=== PATIENT | female | born 2000 | race Two or more races ===

== ENCOUNTER 2021-08-24 08:19 | Emergency (ER) | payer MEDICAID ==
[~2021-08-24] VITALS: Ht 149.9 cm; Wt 48.0 kg
[2021-08-24] MEDS ORDERED: IBUPROFEN 400MG TABLET PO ONE (08:45)
[2021-08-24] MEDS ORDERED: PENICILLIN V POTASSIUM 250MG TABLET PO ONE (08:45)
[2021-08-24] MEDS ORDERED: ACET-2708 MT (09:28)
[2021-08-24] MEDS ORDERED: PENI250T2 MT (09:28)
[2021-08-24 10:35] VITALS: BP 109/76
== END 2021-08-24 10:37 | disposition home or self-care (01) ==
LOC: ER 08:33
DX: O26.892 Other specified pregnancy related conditions, second trimester (principal); S02.5XXA Fracture of tooth (traumatic), initial encounter for closed fracture; X58.XXXA Exposure to other specified factors, initial encounter; Y93.89 Activity, other specified; Y92.89 Other specified places as the place of occurrence of the external cause; Y99.8 Other external cause status; Z3A.28 28 weeks gestation of pregnancy
CPT/HCPCS: 99283

== ENCOUNTER 2021-08-24 17:38 | Emergency (ER) | payer MEDICAID ==
[~2021-08-24] VITALS: Ht 149.9 cm; Wt 48.0 kg
[~2021-08-24 17:38] MED LIST: ACET-2708 MT; PENI250T2 MT
[2021-08-24] MEDS ORDERED: ACETAMINOPHEN 325MG TABLET PO STA (17:53)
[2021-08-24] MEDS ORDERED: BUPIVACAINE HCL/PF 0.25% (2.5MG/ML) 10ML INFIL ONE (18:15)
[2021-08-24 20:25] VITALS: BP 118/77
== END 2021-08-24 21:01 | disposition home or self-care (01) ==
LOC: ER 17:38
DX: S02.5XXA Fracture of tooth (traumatic), initial encounter for closed fracture (principal); X58.XXXA Exposure to other specified factors, initial encounter; Y93.89 Activity, other specified; Y92.89 Other specified places as the place of occurrence of the external cause; Y99.8 Other external cause status; Z88.0 Allergy status to penicillin
CPT/HCPCS: 99281; J3490

== ENCOUNTER 2021-11-11 16:44 | Inpatient (IN) | payer MEDICAID ==
[~2021-11-11] VITALS: Ht 149.9 cm; Wt 51.3 kg
[2021-11-11] MEDS ORDERED: BUTORPHANOL TARTRATE 2 MG/ML VIAL IV PRN (18:15)
[2021-11-11] MEDS ORDERED: CARBOPROST TROMETHAMINE 250 MCG/ML AMPUL IM PRN (18:15)
[2021-11-11] MEDS ORDERED: LIDOCAINE HCL 1% 20ML VIAL (Pyxis) INJ INFIL SCH (18:15)
[2021-11-11] MEDS ORDERED: MISOPROSTOL 100MCG TABLET VG SCH (18:15)
[2021-11-11] MEDS ORDERED: NALOXONE HCL 0.4 MG/ML 1ML VIAL IM PRN (18:15)
[2021-11-11] MEDS ORDERED: METHYLERGONOVINE MALEATE 0.2 MG/ML IM PRN ×2 (18:15→21:15)
[2021-11-11] MEDS ORDERED: LACTATED RINGERS 1,000 ML IV SCH ×2 (18:15)
[2021-11-11] MEDS ORDERED: RHO(D) IMMUNE GLOBULIN 300 MCG/SYR IM NR (18:15)
[2021-11-11] MEDS ORDERED: BLOOD SUGAR DIAGNOSTIC STRIP TEST ONE (18:15)
[2021-11-11] MEDS ORDERED: DEXT 5%/LR + PITOCIN 20UNITS/L 1,000 ML IV SCH ×2 (18:30→21:00)
[2021-11-11 18:46] LABS: BASOPHILS % 0.6 % (0.0-2.0); EOSINOPHILS % 0.5 % (0.0-5.0); HEMATOCRIT. 31.3 % (36.0-48.0); HEMOGLOBIN. 10.2 g/dL (12.0-16.0); LYMPHOCYTES % 20.7 % (20.0-50.0); MEAN CORPUSCULAR HEMOGLOBIN 26.2 pg (28.0-32.0); MEAN CORPUSCULAR VOLUME 80.7 fL (81.0-99.0); MEAN PLATELET VOLUME 8.3 fl (7.4-10.4); MONOCYTES % 6.9 % (2.0-8.0); NEUTROPHILS % 71.3 % (40.0-76.0); PLATELET 308 x1000/uL (130-400); RED BLOOD CELL COUNT 3.88 mill/uL (4.2-5.4); RED CELL DISTRIBUTION WIDTH 14.9 % (11.6-14.6)
[2021-11-11 18:51] LABS: CLARITY URINE CLEAR (CLEAR); COLOR URINE YELLOW (YELLOW); KETONES URINE NEGATIVE (NEGATIVE); LEUKOCYTE ESTERASE URINE TRACE (NEGATIVE); NITRITE URINE NEGATIVE (NEGATIVE); OCCULT BLOOD URINE 1+ (NEGATIVE); PROTEIN URINE NEGATIVE (NEGATIVE); SPECIFIC GRAVITY URINE 1.016 (1.005-1.030)
[2021-11-11] MEDS ORDERED: CLINDAMYCIN 900 MG PREMIX 50 ML IV SCH (19:00)
[2021-11-11 19:01] LABS: *AMPHETAMINES SCREEN URINE NEGATIVE (NEGATIVE); METHADONE URINE SCREEN NEGATIVE (NEGATIVE); PHENCYCLIDINE URINE SCREEN NEGATIVE (NEGATIVE)
[2021-11-11 19:03] LABS: *BARBITURATES SCREEN URINE NEGATIVE (NEGATIVE); *BENZODIAZEPINES SCREEN URINE NEGATIVE (NEGATIVE); *COCAINE SCREEN URINE NEGATIVE (NEGATIVE); CANNABINOID URINE SCREEN NEGATIVE (NEGATIVE)
[2021-11-11 19:12] LABS: INR 0.9; OPIATES URINE SCREEN NEGATIVE (NEGATIVE); PARTIAL THROMBOPLASTIN TIME 25.6 sec (23.4-31.0); PROTHROMBIN TIME 9.4 sec (9.6-11.0)
[2021-11-11 19:38] LABS: HEPATITIS B SURFACE ANTIGEN NEGATIVE
[2021-11-11] MEDS: DOCUSATE SODIUM 100MG CAPSULE PO SCH (21:00)
[2021-11-11] MEDS ORDERED: OXYCODONE HCL/ACETAMINOPHEN 5/325MG TABLET PO PRN (21:00)
[2021-11-11] MEDS ORDERED: LANOLIN OINT 7GM TUBE TOP PRN (21:00)
[2021-11-11] MEDS: SIMETHICONE 80MG TABLET CHEW PO SCH (21:00)
[2021-11-11] MEDS: MAGNESIUM/ALUMINUM HYDROXIDE/SIMETHICONE 30ML UDC PO SCH (21:00)
[2021-11-11] MEDS ORDERED: HEMORRHOIDAL SUPP PR PRN (21:00)
[2021-11-11] MEDS ORDERED: IBUPROFEN 400MG TABLET PO PRN (21:00)
[2021-11-11] MEDS ORDERED: RHO(D) IMMUNE GLOBULIN 300 MCG/SYR IM PRN (21:00)
[2021-11-11] MEDS ORDERED: GLYCERIN/WITCH HAZEL LEAF MEDICATED PAD TOP PRN (21:00)
[2021-11-11] MEDS ORDERED: BISACODYL 10MG SUPP PR PRN (21:00)
[2021-11-11 23:30] VITALS: BP 110/62
[2021-11-12 00:01] VITALS: BP 102/74
[2021-11-12 04:00] VITALS: BP 96/58
[2021-11-12] MEDS: IBUPROFEN 800MG TABLET PO PRN ×2 (04:11→14:12)
[2021-11-12 07:21] LABS: BASOPHILS % 0.3 % (0.0-2.0); EOSINOPHILS % 0.3 % (0.0-5.0); HEMOGLOBIN. 8.4 g/dL (12.0-16.0); LYMPHOCYTES % 16.3 % (20.0-50.0); MEAN CORPUSCULAR HEMOGLOBIN 27.6 pg (28.0-32.0); MEAN CORPUSCULAR VOLUME 81.9 fL (81.0-99.0); MEAN PLATELET VOLUME 7.7 fl (7.4-10.4); MONOCYTES % 5.9 % (2.0-8.0); NEUTROPHILS % 77.2 % (40.0-76.0); PLATELET 211 x1000/uL (130-400); RED BLOOD CELL COUNT 3.05 mill/uL (4.2-5.4)
[2021-11-12 07:30] VITALS: BP 100/66
[2021-11-12] MEDS: SIMETHICONE 80MG TABLET CHEW PO SCH ×4 (08:45→20:50)
[2021-11-12] MEDS: FERROUS SULFATE 325MG TABLET PO SCH ×2 (08:51→14:08)
[2021-11-12] MEDS: PRENATAL VIT/FE FUMARATE/FA TABLET PO SCH (08:52)
[2021-11-12] MEDS: MAGNESIUM/ALUMINUM HYDROXIDE/SIMETHICONE 30ML UDC PO SCH ×3 (08:52→20:50)
[2021-11-12 16:00] VITALS: BP 104/68
[2021-11-12] MEDS ORDERED: CLINDAMYCIN 900 MG PREMIX 50 ML IV SCH (19:00)
[2021-11-12 20:00] VITALS: BP 104/67
[2021-11-12] MEDS: DOCUSATE SODIUM 100MG CAPSULE PO SCH (20:50)
[2021-11-12] MEDS ORDERED: TETANUS, DIPHTHERIA, PERTUSSIS VAC/PF 0.5ML (>10YR OLD) IM ONE (22:00)
[2021-11-13] MEDS: IBUPROFEN 800MG TABLET PO PRN (02:51)
[2021-11-13 04:00] VITALS: BP 105/61
[2021-11-13 07:30] VITALS: BP 101/68
[2021-11-13] MEDS: MAGNESIUM/ALUMINUM HYDROXIDE/SIMETHICONE 30ML UDC PO SCH (08:30)
[2021-11-13] MEDS: PRENATAL VIT/FE FUMARATE/FA TABLET PO SCH (08:56)
[2021-11-13] MEDS: FERROUS SULFATE 325MG TABLET PO SCH (08:56)
== END 2021-11-13 11:50 | disposition home or self-care (01) | DRG 560 ==
LOC: OBSVTOIN 16:44 → 8 EST LDRP 16:44 → 8EST 22:53 → 8 EST LDRP 22:56 → 8EST 23:25
PROVIDERS: ADMIT Obstetrics & Gynecology; ATTEND Obstetrics & Gynecology
PROC: 10E0XZZ Delivery of Products of Conception, External Approach (ICD-10-PCS; principal; 2021-11-11)
DX: O69.81X0 Labor and delivery complicated by cord around neck, without compression, not applicable or unspecified (principal); Z37.0 Single live birth; Z20.822 Contact with and (suspected) exposure to COVID-19; Z3A.39 39 weeks gestation of pregnancy
CPT/HCPCS: 36415; 76805; 76818; 80305; 81003; 85025; 86592; 86703; 86762; 86850; 86900; 87340; 87426; 90715; 99281; G0378; J2590; J3490; J7120